=== PATIENT | female | born 1955 | race Caucasian/White ===

== ENCOUNTER → 2019-03-01 | Outpatient (CLI) | payer OTHER ==
[~2019-03-01] MED LIST: ALLEGRA ALLERG180 MG; AZITHROMYCIN 2250 MG; PRILOSEC20 MG; SIMVASTATIN40 MG PO
== END ==
LOC: CAT 07:56
DX: Z13.6 Encounter for screening for cardiovascular disorders (principal); E78.00 Pure hypercholesterolemia, unspecified; I25.10 Atherosclerotic heart disease of native coronary artery without angina pectoris